=== PATIENT | male | born 1995 | race Hispanic/Latino ===

== ENCOUNTER 2018-11-23 16:44 | Emergency (ER) | payer SELFPAY ==
--- NOTE | 2018-11-23 18:33 | RAD REPORT ---
EXAM DESCRIPTION: US - Extremity Venous Uni Ltd - 11/23/2018 6:25 pm CLINICAL HISTORY: PAIN Leg swelling and edema. COMPARISON: No comparisons FINDINGS: Right lower extremity venous system was interrogated with Doppler technique. Normal flow, compressibility and augmentation was noted. There is no DVT present. IMPRESSION: No evidence of right lower extremity deep venous thrombosis.
--- NOTE | 2018-11-23 19:18 | ER ---
Nurse's Notes [facility] Name: Willi Ramires Age: 23 yrs Sex: Male : 1995 Arrival Date: 11/23/2018 Time: 16:49 Bed 26 Private MD: None, None Diagnosis: Pain in right knee Presentation: 11/23 16:53 Presenting complaint: Patient states: right knee pain that began yesterday. Pt denies aa5 known injury. Transition of care: patient was not received from another setting of care. Onset of symptoms was November 2018. Risk Assessment: Do you want to hurt yourself or someone else? Patient reports no desire to harm self or others. Initial Sepsis Screen: Does the patient meet any 2 criteria? No. Patient's initial sepsis screen is negative. Does the patient have a suspected source of infection? No. Patient's initial sepsis screen is negative. Care prior to arrival: None. 16:53 Method Of Arrival: Wheelchair aa5 16:53 Acuity: GAYLE 4 aa5 Historical: - Allergies: 16:54 No Known Allergies; aa5 - Home Meds: 16:54 Insulin: Regular Sub-Q [Active]; aa5 - PMHx: 16:54 Diabetes - IDDM; aa5 - PSHx: 16:54 R knee; aa5 - Immunization history:: Flu vaccine is up to date. - Social history:: Smoking status: Patient uses tobacco products, smokes one-half pack cigarettes per day. - Ebola Screening: : No symptoms or risks identified at this time. Screenin:14 Abuse screen: Denies threats or abuse. Denies injuries from another. Nutritional rv screening: No deficits noted. Tuberculosis screening: No symptoms or risk factors identified. Fall Risk None identified. Assessment: 18:13 General: Appears in no apparent distress. comfortable, Behavior is calm, cooperative. rv Pain: Complains of pain in right knee. Neuro: Level of Consciousness is awake, alert, obeys commands, Oriented to person, place, time, situation. Cardiovascular: Capillary refill < 3 seconds. Respiratory: Airway is patent. GI: No signs and/or symptoms were reported involving the gastrointestinal system. : No signs and/or symptoms were reported regarding the genitourinary system. EENT: No signs and/or symptoms were reported regarding the EENT system. Derm: Skin is intact. Musculoskeletal: Reports pain in right knee. Vital Signs: 16:54 BP 134 / 82; Pulse 85; Resp 16 S; Temp 97.0(TE); Pulse Ox 99% on R/A; Weight 145.15 kg aa5 (R); Height 5 ft. 11 in. (180.34 cm) (R); Pain 4/10; 16:54 Body Mass Index 44.63 (145.15 kg, 180.34 cm) aa5 16:54 Pt reports worse pain is 9/10 with walking. aa5 ED Course: 16:49 Patient arrived in ED. mr 16:49 None, None is Private Physician. mr 16:53 Arm band placed on. aa5 16:54 Triage completed. aa5 17:18 Shari Morley FNP-C is [facility]. snw 17:21 Zacarias Alicea MD is Attending Physician. snw 18:14 Patient has correct armband on for positive identification. Bed in low position. Call rv light in reach. Side rails up X2. Adult w/ patient. Pulse ox on. NIBP on. 18:25 US Extremity Venous Unilateral Ltd In Process Unspecified. EDMS 18:45 Knee Right 3 View XRAY In Process Unspecified. EDMS 19:39 No provider procedures requiring assistance completed. Patient did not have IV access rv during this emergency room visit. Administered Medications: 19:25 Drug: Kimberly (7.5 mg-325 mg) 1 tabs Route: PO; ca1 19:39 Follow up: Response: Medication administered at discharge. ca1 Outcome: 19:18 Discharge ordered by . snw 19:39 Discharged to home via wheelchair. rv 19:39 Condition: good 19:39 Discharge instructions given to patient, Instructed on discharge instructions, follow up and referral plans. medication usage, Demonstrated understanding of instructions, follow-up care, medications, Prescriptions given X 2. 19:40 Patient left the ED. rv Signatures: Dispatcher [employer] EDMS Shari Morley FNP-C FNP-Mac Marcelina ShaneFanta, RN RN aa5 Prasanna Kumar RN RN rv Dagmar Sutherland RN RN ca1
--- NOTE | 2018-11-23 19:19 | EDPHYS ---
Physician Documentation [facility] Name: Willi Ramires Age: 23 yrs Sex: Male : 1995 Arrival Date: 11/23/2018 Time: 16:49 Bed 26 Private MD: None, None ED Physician Zacarias Alicea HPI: 11/23 17:34 This 23 yrs old Male presents to ER via Wheelchair with complaints of Knee snw Pain. 17:34 Onset: The symptoms/episode began/occurred 4 day(s) ago, and became persistent. The snw patient has not experienced similar symptoms in the past. The patient has not recently seen a physician. surgery to right knee with screws 7 years ago at [facility]. Historical: - Allergies: 16:54 No Known Allergies; aa5 - Home Meds: 16:54 Insulin: Regular Sub-Q [Active]; aa5 - PMHx: 16:54 Diabetes - IDDM; aa5 - PSHx: 16:54 R knee; aa5 - Immunization history:: Flu vaccine is up to date. - Social history:: Smoking status: Patient uses tobacco products, smokes one-half pack cigarettes per day. - Ebola Screening: : No symptoms or risks identified at this time. ROS: 17:34 Constitutional: Negative for fever, chills, and weight loss, Eyes: Negative for injury, snw pain, redness, and discharge, ENT: Negative for injury, pain, and discharge, Neck: Negative for injury, pain, and swelling, Cardiovascular: Negative for chest pain, palpitations, and edema, Respiratory: Negative for shortness of breath, cough, wheezing, and pleuritic chest pain, Abdomen/GI: Negative for abdominal pain, nausea, vomiting, diarrhea, and constipation, Back: Negative for injury and pain, : Negative for injury, bleeding, discharge, and swelling, Skin: Negative for injury, rash, and discoloration, Neuro: Negative for headache, weakness, numbness, tingling, and seizure. 17:34 MS/extremity: Positive for injury or acute deformity, tenderness. Exam: 17:32 Constitutional: This is a well developed, well nourished patient who is awake, alert, snw and in no acute distress. Head/Face: Normocephalic, atraumatic. Eyes: Pupils equal round and reactive to light, extra-ocular motions intact. Lids and lashes normal. Conjunctiva and sclera are non-icteric and not injected. Cornea within normal limits. Periorbital areas with no swelling, redness, or edema. ENT: Nares patent. No nasal discharge, no septal abnormalities noted. Tympanic membranes are normal and external auditory canals are clear. Oropharynx with no redness, swelling, or masses, exudates, or evidence of obstruction, uvula midline. Mucous membranes moist. Neck: Trachea midline, no thyromegaly or masses palpated, and no cervical lymphadenopathy. Supple, full range of motion without nuchal rigidity, or vertebral point tenderness. No Meningismus. Chest/axilla: Normal chest wall appearance and motion. Nontender with no deformity. No lesions are appreciated. Cardiovascular: Regular rate and rhythm with a normal S1 and S2. No gallops, murmurs, or rubs. Normal PMI, no JVD. No pulse deficits. Respiratory: Lungs have equal breath sounds bilaterally, clear to auscultation and percussion. No rales, rhonchi or wheezes noted. No increased work of breathing, no retractions or nasal flaring. Abdomen/GI: Soft, non-tender, with normal bowel sounds. No distension or tympany. No guarding or rebound. No evidence of tenderness throughout. Back: No spinal tenderness. No costovertebral tenderness. Full range of motion. Skin: Warm, dry with normal turgor. Normal color with no rashes, no lesions, and no evidence of cellulitis. Neuro: Awake and alert, GCS 15, oriented to person, place, time, and situation. Cranial nerves II-XII grossly intact. Motor strength 5/5 in all extremities. Sensory grossly intact. Cerebellar exam normal. Normal gait. Psych: Awake, alert, with orientation to person, place and time. Behavior, mood, and affect are within normal limits. 17:32 Musculoskeletal/extremity: Extremities: grossly normal except: noted in the lateral aspect of right knee and medial aspect of right knee: tenderness, ROM: limited active range of motion due to pain, Circulation is intact in all extremities. Vital Signs: 16:54 BP 134 / 82; Pulse 85; Resp 16 S; Temp 97.0(TE); Pulse Ox 99% on R/A; Weight 145.15 kg aa5 (R); Height 5 ft. 11 in. (180.34 cm) (R); Pain 4/10; 16:54 Body Mass Index 44.63 (145.15 kg, 180.34 cm) aa5 16:54 Pt reports worse pain is 9/10 with walking. aa5 MDM: 17:23 Patient medically screened. ruddy 19:19 Data reviewed: vital signs, nurses notes. Data interpreted: Pulse oximetry: on room air snw is 99 %. Interpretation: normal. Counseling: I had a detailed discussion with the patient and/or guardian regarding: the historical points, exam findings, and any diagnostic results supporting the discharge/admit diagnosis, radiology results, the need for outpatient follow up, for definitive care, to return to the emergency department if symptoms worsen or persist or if there are any questions or concerns that arise at home. Special discussion: I have referred the patient to see his PCP for further evaluation of high blood pressure. Based on the history and exam findings, there is no indication for further emergent testing or inpatient evaluation. I discussed with the patient/guardian the need to see the orthopedic surgeon for further evaluation of the symptoms. I discussed with the patient/guardian the need to see the primary care provider for further evaluation of the symptoms. 11/23 17:29 Order name: Knee Right 3 View XRAY; Complete Time: 19:28 snw 11/23 17:29 Order name: US Extremity Venous Unilateral Ltd; Complete Time: 18:36 snw Administered Medications: 19:25 Drug: Wayland (7.5 mg-325 mg) 1 tabs Route: PO; ca1 19:39 Follow up: Response: Medication administered at discharge. ca1 Disposition: 11/24 07:17 Co-signature as Attending Physician, Zacarias Alicea MD I agree with the assessment and [facility] plan of care. Disposition: 11/23/18 19:18 Discharged to Home. Impression: Pain in right knee. - Condition is Stable. - Discharge Instructions: Joint Pain, Arthritis, How to Use a Knee Brace, Musculoskeletal Pain, Knee Pain, Cryotherapy, [id number], Heat Therapy. - Prescriptions for Diclofenac Sodium 75 mg Oral Tablet Sustained Release - take 1 tablet by ORAL route 2 times per day; 30 tablet. orphenadrine citrate 100 mg Oral Tablet Sustained Release - take 1 tablet by ORAL route 2 times per day As needed; 20 tablet. - Medication Reconciliation Form, Thank You Letter, Antibiotic Education, Prescription Opioid Use, Work release form form. - Follow up: Private Physician; When: 2 - 3 days; Reason: Recheck today's complaints, Continuance of care, Re-evaluation by your physician. Follow up: Emergency Department; When: As needed; Reason: Worsening of condition. Signatures: Dispatcher [employer] EDMS Zacarias Alicea MD MD cha Therrien, Shelly, HIGHWAY ADMINISTRATIVE ENGINEER-C HIGHWAY ADMINISTRATIVE ENGINEER-Csnw Fanta Jaquez, RN RN aa5 Prasanna Kumar RN RN rv Acob, Dagmar RN RN ca1 Corrections: (The following items were deleted from the chart) 11/23 19:40 19:18 11/23/2018 19:18 Discharged to Home. Impression: Pain in right knee. Condition is rv Stable. Forms are Medication Reconciliation Form, Thank You Letter, Antibiotic Education, Prescription Opioid Use. Follow up: Private Physician; When: 2 - 3 days; Reason: Recheck today's complaints, Continuance of care, Re-evaluation by your physician. Follow up: Emergency Department; When: As needed; Reason: Worsening of condition. snw
--- NOTE | 2018-11-23 19:23 | RAD REPORT ---
EXAM DESCRIPTION: RAD - Knee Right 3 View - 11/23/2018 6:43 pm CLINICAL HISTORY: PAIN COMPARISON: Knee Right 2 View dated 07/30/2010 FINDINGS: Two screws are present in the lateral femoral condyle. Mild osteoarthritic changes involvi ng all three joint compartments seen. No fracture or suprapatellar joint effusion.
[2018-11-23] MEDS ORDERED: HYDROCODONE/APAP 7.5/325 MG TAB ONE (19:36)
== END 2018-11-23 19:40 | disposition home or self-care (01) ==
LOC: ER 16:44
DX: M25.561 Pain in right knee (principal); E11.9 Type 2 diabetes mellitus without complications; Z79.4 Long term (current) use of insulin; F17.210 Nicotine dependence, cigarettes, uncomplicated
CPT/HCPCS: 93971; 99284

== ENCOUNTER 2019-12-28 08:12 | Emergency (ER) | payer SELFPAY ==
[2019-12-28] MEDS ORDERED: MAGNE/ALUM HYDROXD 30 ML UCUP ONE (08:33)
[2019-12-28] MEDS ORDERED: LIDOCAINE VISCOUS 2% SOLN 15 ML UDC ONE (08:33)
[2019-12-28 08:50] LABS: Absolute Lymphocytes (CBC) 2.5 K/uL (0.7-4.9); Basophils % 0.6 % (0-1.3); Hematocrit 49.2 % (39.6-49.0); Lymphocytes % 25.6 % (15.3-44.8); MPV 9.2 fL (7.6-11.3); RBC Red Blood Cell Count 5.92 M/uL (4.33-5.43)
--- NOTE | 2019-12-28 09:16 | RAD REPORT ---
EXAM DESCRIPTION: RAD - Chest Single View - 12/28/2019 9:04 am CLINICAL HISTORY: CHEST PAIN COMPARISON: August 2011 TECHNIQUE: AP portable chest image was obtained 12/28/2019 9:04 am . FINDINGS: Lungs are clear. Heart and vasculature are normal. No measurable pleural effusion and no p neumothorax. No acute bony abnormality seen. No acute aortic findings suspected. IMPRESSION: No acute cardiopulmonary process.
[2019-12-28 10:29] LABS: BUN Blood Urea Nitrogen 17 mg/dL (7-18); Bicarbonate 22 mmol/L (21-32); Glucose Level 290 mg/dL (74-106); Potassium 4.2 mmol/L (3.5-5.1); Sodium Level 137 mmol/L (136-145); Troponin (Emerg Dept Use Only) < 0.02 ng/mL (0.0-0.045)
--- NOTE | 2019-12-28 10:45 | ER ---
Nurse's Notes [facility] Name: Willi Ramires Age: 24 yrs Sex: Male : 1995 Arrival Date: 12/28/2019 Time: 08:17 Bed 18 Private MD: Diagnosis: Chest pain, unspecified Presentation: 12/27 08:26 Chief complaint: Patient states: Mild chest pain that began 1 week ago. Pt reports pain ss became worse this morning. BGL check at home was 168 this AM. Coronavirus screen: Patient denies fever greater than 100.4F, cough, shortness of breath, or difficulty breathing. Proceed with normal triage process. Ebola Screen: Patient denies exposure to infectious person. Patient denies travel to an Ebola-affected area in the 21 days before illness onset. Initial Sepsis Screen: Does the patient meet any 2 criteria? No. Patient's initial sepsis screen is negative. Does the patient have a suspected source of infection? No. Patient's initial sepsis screen is negative. Risk Assessment: Do you want to hurt yourself or someone else? Patient reports no desire to harm self or others. 08:26 Method Of Arrival: Ambulatory ss 08:26 Acuity: GAYLE 3 ss Historical: - Allergies: 08:30 No Known Allergies; ss - Home Meds: 08:30 Insulin: Regular Sub-Q [Active]; ss - PMHx: 08:30 Diabetes - IDDM; ss - PSHx: 08:30 R knee; ss - Immunization history:: Adult Immunizations up to date. - Social history:: Smoking status: Patient reports the use of cigarette tobacco products, smokes one-half pack cigarettes per day. - Family history:: not pertinent. - Hospitalizations: : No recent hospitalization is reported. Screenin:21 Abuse screen: Denies threats or abuse. Nutritional screening: No deficits noted. tw2 Tuberculosis screening: No symptoms or risk factors identified. Fall Risk None identified. Assessment: 08:30 General: Appears in no apparent distress. obese, Behavior is calm, cooperative, tw2 appropriate for age. Pain: Complains of pain in epigastric area Pain does not radiate. Pain began 1 week ago. Neuro: Level of Consciousness is awake, alert, obeys commands, Oriented to person, place, time, situation. Cardiovascular: Heart tones S1 S2 Patient's skin is warm and dry. Respiratory: Airway is patent Respiratory effort is even, unlabored, Respiratory pattern is regular, symmetrical, Breath sounds are clear bilaterally. GI: No signs and/or symptoms were reported involving the gastrointestinal system. Abdomen is round non-distended, obese, Bowel sounds present X 4 quads. : No signs and/or symptoms were reported regarding the genitourinary system. EENT: No signs and/or symptoms were reported regarding the EENT system. Derm: No signs and/or symptoms reported regarding the dermatologic system. Musculoskeletal: Range of motion: intact in all extremities. 09:09 Reassessment: Patient appears in no apparent distress at this time. No changes from tw2 previously documented assessment. Patient and/or family updated on plan of care and expected duration. Pain level reassessed. Patient is alert, oriented x 3, equal unlabored respirations, skin warm/dry/pink. 10:13 Reassessment: Patient appears in no apparent distress at this time. No changes from tw2 previously documented assessment. Patient and/or family updated on plan of care and expected duration. Pain level reassessed. Patient is alert, oriented x 3, equal unlabored respirations, skin warm/dry/pink. 11:00 Reassessment: Patient appears in no apparent distress at this time. No changes from tw2 previously documented assessment. Patient and/or family updated on plan of care and expected duration. Pain level reassessed. Patient is alert, oriented x 3, equal unlabored respirations, skin warm/dry/pink. Vital Signs: 08:26 Pulse 102; Resp 17; Pulse Ox 99% on R/A; Weight 140.61 kg; Height 5 ft. 11 in. (180.34 ss cm); Pain 3/10; 08:27 BP 138 / 89; Pulse 99; Resp 17; Temp 98.1(O); Pulse Ox 98% on R/A; tw2 09:10 BP 131 / 81; Pulse 85; Resp 17; Pulse Ox 96% on R/A; tw2 10:12 BP 138 / 79; Pulse 75; Resp 22; Pulse Ox 98% on R/A; tw2 11:00 BP 133 / 87; Pulse 73; Resp 17; Pulse Ox 99% on R/A; tw2 08:26 Body Mass Index 43.24 (140.61 kg, 180.34 cm) ED Course: 08:17 Patient arrived in ED. mr 08:17 Jak Ang MD is Attending Physician. rn 08:21 Ritu Walton, RN is Primary Nurse. tw2 08:21 Bed in low position. Call light in reach. hose inspector and patcher on. Pulse ox on. NIBP on. tw2 08:23 Arm band placed on. tw2 08:30 Triage completed. 08:44 Initial lab(s) drawn, by ms, sent to lab. EKG done, by ED staff, reviewed by Jak Ang MD. Inserted saline lock: 22 gauge in right antecubital area, using aseptic technique. Blood collected. 09:06 XRAY Chest (1 view) In Process Unspecified. EDMS 11:01 No provider procedures requiring assistance completed. IV discontinued, intact, tw2 bleeding controlled, No redness/swelling at site. Pressure dressing applied. Administered Medications: 08:30 Drug: GI Cocktail without - (Maalox Suspension 30 ml, Lidocaine Liquid 2 % 15 tw2 ml) Route: PO; Outcome: 10:44 Discharge ordered by . rn 11:01 Patient left the ED. tw2 11:01 Discharged to home ambulatory. tw2 11:01 Condition: stable 11:01 Discharge instructions given to patient, Instructed on discharge instructions, follow up and referral plans. Demonstrated understanding of instructions, follow-up care. Signatures: Dispatcher [employer] ANKITAGA Marcelina Shane mr Jak Ang MD MD rn Smirch, Shelby, RN RN ss Ritu Walton RN RN [facility] Haley Nicole
--- NOTE | 2019-12-28 10:46 | EDPHYS ---
Physician Documentation [facility] Name: Willi Ramires Age: 24 yrs Sex: Male : 1995 Arrival Date: 12/28/2019 Time: 08:17 Bed 18 Private MD: ED Physician Jak Ang HPI: 12/27 08:27 This 24 yrs old Male presents to ER via Unassigned with complaints of Chest rn Pain. 08:27 The patient or guardian reports chest pain that is located primarily in the anterior rn chest wall. The pain does not radiate. Associated signs and symptoms: Pertinent negatives: abdominal pain, cough, diaphoresis, lower extremity swelling, lightheadedness, palpitations, shortness of breath, syncope, vomiting. The chest pain is described as dull. Duration: The patient or guardian reports multiple episodes, that are intermittent. Modifying factors: The symptoms are alleviated by nothing. the symptoms are aggravated by nothing. Severity of pain: At its worst the pain was mild in the emergency department the pain is unchanged. The patient has not experienced similar symptoms in the past. Reports approx 1 week of chest pain, anterior and center/left, no radiation, no fever/cough/trauma/hemoptysis. No recent travel/exposure to sick contacts. Denies family hx of early/young cardiac problems. Thought was acid reflux, hasn't taken anything, had worse chest pain driving to work today so came here. Chest pain improving since arrival without treatment. No abd pain/vomiting.. Historical: - Allergies: 08:30 No Known Allergies; ss - Home Meds: 08:30 Insulin: Regular Sub-Q [Active]; ss - PMHx: 08:30 Diabetes - IDDM; ss - PSHx: 08:30 R knee; ss - Immunization history:: Adult Immunizations up to date. - Social history:: Smoking status: Patient reports the use of cigarette tobacco products, smokes one-half pack cigarettes per day. - Family history:: not pertinent. - Hospitalizations: : No recent hospitalization is reported. ROS: 08:27 Constitutional: Negative for fever, chills, and weight loss, Eyes: Negative for injury, rn pain, redness, and discharge, Neck: Negative for injury, pain, and swelling, Cardiovascular: Negative for palpitations, and edema, + chest pain Respiratory: Negative for shortness of breath, cough, wheezing, and pleuritic chest pain, Abdomen/GI: Negative for abdominal pain, nausea, vomiting, diarrhea, and constipation, MS/Extremity: Negative for injury and deformity, Skin: Negative for injury, rash, and discoloration, Neuro: Negative for headache, weakness, numbness, tingling, and seizure. Exam: 08:27 Constitutional: This is a well developed, well nourished patient who is awake, alert, rn and in no acute distress. Ambulatory to room without distress or assistance. Head/Face: Normocephalic, atraumatic. Cardiovascular: Regular rate and rhythm. No pulse deficits. Respiratory: Lungs have equal breath sounds bilaterally, clear to auscultation. No increased work of breathing, no retractions or nasal flaring. Abdomen/GI: Soft, non-tender Skin: Warm, dry MS/ Extremity: Pulses equal, no cyanosis. Neuro: Awake and alert, GCS 15 08:44 ECG was reviewed by the Attending Physician. rn Vital Signs: 08:26 Pulse 102; Resp 17; Pulse Ox 99% on R/A; Weight 140.61 kg; Height 5 ft. 11 in. (180.34 ss cm); Pain 3/10; 08:27 BP 138 / 89; Pulse 99; Resp 17; Temp 98.1(O); Pulse Ox 98% on R/A; tw2 09:10 BP 131 / 81; Pulse 85; Resp 17; Pulse Ox 96% on R/A; tw2 10:12 BP 138 / 79; Pulse 75; Resp 22; Pulse Ox 98% on R/A; tw2 11:00 BP 133 / 87; Pulse 73; Resp 17; Pulse Ox 99% on R/A; tw2 08:26 Body Mass Index 43.24 (140.61 kg, 180.34 cm) ss MDM: 08:17 Patient medically screened. rn 10:43 Differential diagnosis: acute pericarditis, chest wall pain, costochondritis, rn esophagitis, gastritis, gastroesophageal reflux disease (GERD), pericarditis, pleurisy, pneumonia, pneumothorax, pulmonary embolus. Data reviewed: vital signs, nurses notes, lab test result(s), EKG, radiologic studies, plain films, and as a result, I will discharge patient. Test interpretation: by ED physician or midlevel provider: ECG, plain radiologic studies, CXR neg for pneumonia/pneumothorax. Counseling: I had a detailed discussion with the patient and/or guardian regarding: the historical points, exam findings, and any diagnostic results supporting the discharge/admit diagnosis, lab results, radiology results, the need for outpatient follow up, to return to the emergency department if symptoms worsen or persist or if there are any questions or concerns that arise at home. Special discussion: Based on the patient's history, exam, and Dx evaluation, there is no indication for emergent intervention or inpatient Tx. It is understood by the patient/guardian that if the Sx's persist or worsen they need to return immediately for re-evaluation. I discussed with the patient/guardian in detail that at this point there is no indication for admission to the hospital. It is understood, however, that if the symptoms persist or worsen the patient needs to return immediately for re-evaluation. Based on the history and exam findings, there is no indication for further emergent testing or inpatient evaluation. I discussed with the patient/guardian the need to see the tool room attendant for further evaluation of the symptoms. I discussed with the patient/guardian the need to see the primary care provider for further evaluation of the symptoms. 12/27 08:26 Order name: CBC with Diff; Complete Time: 09: rn 12/27 08:26 Order name: Basic Metabolic Panel; Complete Time: 10:43 rn 12/27 08:26 Order name: XRAY Chest (1 view); Complete Time: 09:21 rn 12/27 08:26 Order name: Troponin (emerg Dept Use Only); Complete Time: 10:43 rn 12/27 09:11 Order name: DD; Complete Time: 10:16 bd 12/27 08:26 Order name: IV Start; Complete Time: 08:50 rn 12/27 08:26 Order name: EKG; Complete Time: 08:27 rn 12/27 08:26 Order name: EKG - Nurse/Tech; Complete Time: 08:50 rn 12/27 08:54 Order name: Labs - recollect needed; Complete Time: 09: bd EC:44 Rate is 96 beats/min. Rhythm is regular. Left axis deviation noted. QRS is positive in rn lead I and negative in lead aVF. RI interval is normal. QRS interval is normal. QT interval is normal. No Q waves. T waves are Normal. No ST changes noted. Clinical impression: Normal sinus rhythm, left axis deviation. Interpreted by me. Reviewed by me. Administered Medications: 08:30 Drug: GI Cocktail without - (Maalox Suspension 30 ml, Lidocaine Liquid 2 % 15 tw2 ml) Route: PO; Disposition: 12/28/19 10:44 Discharged to Home. Impression: Chest pain, unspecified. - Condition is Stable. - Discharge Instructions: Nonspecific Chest Pain, Pain Without a Known Cause. - Medication Reconciliation Form, Thank You Letter, Antibiotic Education, Prescription Opioid Use, Work release form form. - Follow up: Private Physician; When: As needed; Reason: Recheck today's complaints, Re-evaluation by your physician. - Problem is new. - Symptoms are unchanged. Signatures: Dispatcher [employer] EDMS Marina Lara Roman, MD MD rn SmirMartha bauer RN RN ss Ritu Walton RN RN tw2 Corrections: (The following items were deleted from the chart) 11:01 10:44 12/28/2019 10:44 Discharged to Home. Impression: Chest pain, unspecified. tw2 Condition is Stable. Forms are Medication Reconciliation Form, Thank You Letter, Antibiotic Education, Prescription Opioid Use. Follow up: Private Physician; When: As needed; Reason: Recheck today's complaints, Re-evaluation by your physician. Problem is new. Symptoms are unchanged. rn
[2019-12-28 11:11] VITALS: TEMP 98.1
[2019-12-28 11:19] VITALS: BP 133/87; O2SAT 99
--- NOTE | 2019-12-29 10:59 | EKG ---
Test Date: 2019-12-28 Test Time: 08:32:21 Lump Receiver: ANN MEASUREMENT RESULTS: Intervals: Rate: 96 NM: 144 QRSD: 98 QT: 344 QTc: 434 [place]: P: 53 NM: 144 QRS: -70 T: 45 INTERPRETIVE STATEMENTS: Normal sinus rhythm Left axis deviation Pulmonary disease pattern Abnormal ECG No previous ECG available for comparison Electronically Signed On 12-29-19 10:56:24 CDT by Menedl Mao
== END 2019-12-28 11:01 | disposition home or self-care (01) ==
LOC: ER 08:12
DX: R07.9 Chest pain, unspecified (principal); E11.9 Type 2 diabetes mellitus without complications; Z79.4 Long term (current) use of insulin; F17.210 Nicotine dependence, cigarettes, uncomplicated
CPT/HCPCS: 36415; 71045; 80048; 84484; 85025; 85379; 93005; 99284